=== PATIENT | male | born 1995 | race Two or more races ===

== ENCOUNTER 2022-09-20 12:44 | Emergency (ER) | payer BC ==
[2022-09-20] MEDS ORDERED: Ibuprofen 800 MG Tab PO ONE (13:27)
[2022-09-20 14:41] LABS: CARBON DIOXIDE,CO2 27.1 mmol/L (21.0-32.0); POTASSIUM,K 3.7 mmol/L (3.5-5.1)
== END 2022-09-20 15:11 | disposition home or self-care (01) ==
LOC: MW.ED 12:44
DX: R07.82 Intercostal pain (principal); Z79.899 Other long term (current) drug therapy
CPT/HCPCS: 36415; 71045; 80053; 83690; 84484; 85025; 85379; 93005; 99284; A9270